=== PATIENT | male | born 1935 | race Caucasian/White ===

== ENCOUNTER 2020-02-06 05:35 | Observation (INO) | payer MEDICARE ==
[~2020-02-06] VITALS: Ht 172.7 cm; Wt 79.2 kg
[~2020-02-06 05:35] MED LIST: ASPI-496 PO; ATOR40TA78 PO; COLC0.6C3 PO; LOSA25TA25 PO; MAGN1POW PO; METO25TA2 PO; MULT-658 PO; NITR0.4T41 SL
[2020-02-06] MEDS ORDERED: BUPIVACAINE/PF 0.25% ONE (06:06)
[2020-02-06] MEDS ORDERED: methylPREDNISolone SOD SUCC 125 MG/2 ML ONE (06:06)
[2020-02-06] MEDS ORDERED: BACITRACIN 50,000 UNIT ONE (06:07)
[2020-02-06] MEDS ORDERED: EPINEPHRINE 1 MG/ML, 1ML ONE (06:07)
[2020-02-06] MEDS ORDERED: FENTANYL PF 100 MCG/2ML ONE ×2 (06:07→09:00)
[2020-02-06] MEDS ORDERED: LACTATED RINGERS 1,000 ML IV SCH (06:11)
[2020-02-06] MEDS ORDERED: SYMBICORT INHALER INH (06:15)
[2020-02-06] MEDS ORDERED: TAMS-11 PO (06:15)
[2020-02-06 06:17] VITALS: BP 157/97
[2020-02-06] MEDS ORDERED: CHLORHEXIDINE 15 ML UDC MM ONE (06:30)
[2020-02-06] MEDS ORDERED: EPHEDRINE 50 MG/ML, 1ML ONE (07:00)
[2020-02-06] MEDS ORDERED: FENTANYL PF 250 MCG/5ML ONE (07:05)
[2020-02-06] MEDS ORDERED: HYDROmorphone 2 MG/ML, 1ML IVPush PRN (07:30)
[2020-02-06] MEDS ORDERED: hydrALAzine 20 MG/ML, 1ML IV PRN (07:30)
[2020-02-06] MEDS ORDERED: KETOROLAC 30 MG/1 ML IV PRN (07:30)
[2020-02-06] MEDS ORDERED: OXYcodone 5 MG/5 ML ORAL.SOL UDC PO PRN (07:30)
[2020-02-06] MEDS ORDERED: LABETALOL 5MG/ML, 20ML IV PRN (07:30)
[2020-02-06] MEDS ORDERED: ALBUTEROL SULFATE 2.5 MG/3 ML NPPB PRN (07:30)
[2020-02-06] MEDS ORDERED: ACETAMINOPHEN 325 MG TABLET PO PRN (07:30)
[2020-02-06] MEDS ORDERED: PROMETHAZINE 25 MG/ML, 1ML IV PRN (07:30)
[2020-02-06] MEDS ORDERED: MEPERIDINE/PF 25MG/0.5ML IVPush PRN (07:30)
[2020-02-06] MEDS ORDERED: SUGAMMADEX 200 MG/2 ML IVPush ONE (08:27)
[2020-02-06] MEDS ORDERED: ONDANSETRON 2MG/ML, 2ML ONE (08:27)
[2020-02-06] MEDS ORDERED: GLYCOPYRROLATE 0.2MG/1ML, 5ML ONE (08:27)
[2020-02-06] MEDS ORDERED: DEXAMETHASONE 4 MG/ML, 1ML ONE (08:27)
[2020-02-06] MEDS ORDERED: PROPOFOL 10 MG/ML, 20ML ONE (08:27)
[2020-02-06] MEDS ORDERED: SUCCINYLCHOLINE 20 MG/ML, 10ML ONE (08:27)
[2020-02-06] MEDS ORDERED: NEOSTIGMINE 1 MG/ML, 10ML ONE (08:27)
[2020-02-06] MEDS ORDERED: CEFAZOLIN 1,000 MG ONE (08:27)
[2020-02-06] MEDS ORDERED: ROCURONIUM 10MG/ML,5ML ONE (08:27)
[2020-02-06] MEDS ORDERED: PHARMACY MAY ADJ FOR RENAL FX MC PRN (09:00)
[2020-02-06] MEDS ORDERED: MAGNESIUM HYDROXIDE 8%, 30ML UDC PO PRN (09:00)
[2020-02-06] MEDS ORDERED: METHOCARBAMOL 1,000 MG in DEXTROSE 5% 100 ML IV ONE (09:00)
[2020-02-06] MEDS ORDERED: TIZANIDINE 4MG TABLET PO PRN (09:00)
[2020-02-06] MEDS ORDERED: TAMSULOSIN 0.4 MG CAP.ER.24H PO SCH (09:00)
[2020-02-06] MEDS ORDERED: PROMETHAZINE 25 MG/ML, 1ML IM PRN (09:00)
[2020-02-06] MEDS ORDERED: HYDROmorphone PCA 30 MG/30 ML IV PRN (09:00)
[2020-02-06] MEDS ORDERED: HYDROmorphone 1 MG/ML, 1ML INJ IVPush PRN (09:00)
[2020-02-06] MEDS ORDERED: ONDANSETRON 2MG/ML, 2ML IVPush PRN (09:00)
[2020-02-06] MEDS ORDERED: OXYcodone/APAP 5/325MG TABLET PO PRN (09:00)
[2020-02-06] MEDS ORDERED: HYDROcodone/APAP 10/325 MG TABLET PO PRN (09:00)
[2020-02-06] MEDS ORDERED: DIPHENHYDRAMINE 50 MG/ML, 1ML IVPush PRN (09:00)
[2020-02-06] MEDS ORDERED: BISACODYL 10 MG SUPP PR PRN (09:00)
[2020-02-06] MEDS: FENTANYL PF 100 MCG/2ML IV PRN ×2 (09:01→09:15)
[2020-02-06] MEDS ORDERED: LABETALOL 5MG/ML, 20ML ONE (09:16)
[2020-02-06 09:55] VITALS: BP 144/83
[2020-02-06] MEDS: SODIUM CHLORIDE FLUSH 10ML SYR IVF SCH ×2 (10:33→20:53)
[2020-02-06] MEDS: LOSARTAN 25MG TABLET PO SCH (10:33)
[2020-02-06] MEDS: SENNA/DOCUSATE TABLET PO SCH (10:33)
[2020-02-06] MEDS: METOPROLOL SUCCINATE 25 MG TAB.ER.24H PO SCH (10:33)
[2020-02-06] MEDS: NS + 20MEQ KCL 1,000 ML IV SCH ×2 (11:57→22:00)
[2020-02-06 15:00] VITALS: BP 114/65
[2020-02-06] MEDS: CEFAZOLIN PMX 1GM/50ML 50 ML IVPB SCH ×2 (15:02→23:02)
[2020-02-06] MEDS ORDERED: ATORVASTATIN 40 MG TABLET PO SCH (21:00)
[2020-02-06 21:10] VITALS: BP 123/79
[2020-02-07 01:18] VITALS: BP 108/64
[2020-02-07 04:47] VITALS: BP 127/80
[2020-02-07 07:25] VITALS: BP 123/74
[2020-02-07] MEDS: NS + 20MEQ KCL 1,000 ML IV SCH (08:26)
[2020-02-07] MEDS: LOSARTAN 25MG TABLET PO SCH (08:26)
[2020-02-07] MEDS: METOPROLOL SUCCINATE 25 MG TAB.ER.24H PO SCH (08:26)
[2020-02-07] MEDS: SENNA/DOCUSATE TABLET PO SCH (08:26)
[2020-02-07] MEDS: SODIUM CHLORIDE FLUSH 10ML SYR IVF SCH (08:27)
== END 2020-02-07 10:50 | disposition home or self-care (01) ==
LOC: OUT 05:35 → 4NE 08:33 → OUT 08:33 → 4NE 09:52 → DCLOUNGE 02-07 10:36
PROVIDERS: ADMIT Neurological Surgery; ATTEND Neurological Surgery
DX: M48.062 Spinal stenosis, lumbar region with neurogenic claudication (principal); M51.36 Other intervertebral disc degeneration, lumbar region; I10 Essential (primary) hypertension; E78.00 Pure hypercholesterolemia, unspecified; G62.9 Polyneuropathy, unspecified; M19.90 Unspecified osteoarthritis, unspecified site; G31.89 Other specified degenerative diseases of nervous system; M41.9 Scoliosis, unspecified; E78.5 Hyperlipidemia, unspecified; I73.9 Peripheral vascular disease, unspecified; Z79.82 Long term (current) use of aspirin; Z79.899 Other long term (current) drug therapy
CPT/HCPCS: 63030; 63035; 72100; 96361; 96365; 96366; 96375; 97161; 97165; G0378; J0171; J0690; J1100; J1170; J1200; J2405; J2704; J2800; J3010; J3480; J3490; J7120; J2710; J0330; J2930